=== PATIENT | male | born 1945 | race Caucasian/White ===

== ENCOUNTER 2017-07-01 11:25 | Emergency (ER) | payer OTHER ==
[~2017-07-01] VITALS: Ht 170.2 cm; Wt 106.6 kg
[~2017-07-01 11:25] MED LIST: AMBIEN10 MG PO; AMOX1TAB12 PO; CARDURA XL4 MG/BOTTL PO; CARDURA1 MG PO; CATAFLAM50 MG PO; CATAPRES0.1 MG PO; CELEBREX200MG PO; CLONAZEPAM2 MG/TAB PO; COZAAR100 MG PO; COZAAR25 MG PO; CYMBALTA60 MG PO; DERMOTIC20 ML OT; FLOXIN OTIC OT; KLONOPIN0.125 MG/T PO; LAMICTAL200 MG PO; LAMICTAL25 M1 PO; LAMICTAL25 MG PO; LASIX40 MG PO; LATUDA40 MG; LEVAQUIN750 MG PO; MEDROL4 MG PO; MEDROLPACK PO; ORPH100T PO; PROTONIX40 MG PO; SEROQUEL XR200 MG PO; SEROQUEL25 MG PO; SKELAXIN800 MG PO; TENORMIN0.5 MG/ML IV; TRENTAL; TUSSI PRES-B L120 M1 PO; WELLBUTRIN SR150 MG PO; WELLBUTRIN100 MG PO; XANAX1 MG PO; ZOCOR5 MG; ZYNCOF 20-400120 ML PO
== END 2017-07-01 16:24 | disposition home or self-care (01) ==
LOC: ER 11:25
DX: S00.83XA Contusion of other part of head, initial encounter (principal); R42 Dizziness and giddiness; W18.39XA Other fall on same level, initial encounter; Y93.89 Activity, other specified; Y92.018 Other place in single-family (private) house as the place of occurrence of the external cause; Y99.8 Other external cause status

== ENCOUNTER 2017-10-26 09:01 | Emergency (ER) | payer OTHER ==
[~2017-10-26] VITALS: Ht 170.2 cm; Wt 105.2 kg
== END 2017-10-26 12:17 | disposition home or self-care (01) ==
LOC: ER 09:01
DX: S40.012A Contusion of left shoulder, initial encounter (principal); S40.011A Contusion of right shoulder, initial encounter; S60.511A Abrasion of right hand, initial encounter; W18.09XA Striking against other object with subsequent fall, initial encounter; Y93.01 Activity, walking, marching and hiking; Y92.488 Other paved roadways as the place of occurrence of the external cause; Y99.8 Other external cause status

== ENCOUNTER 2018-02-19 09:35 | Emergency (ER) | payer OTHER ==
[~2018-02-19] VITALS: Ht 170.2 cm; Wt 97.5 kg
== END 2018-02-19 12:32 | disposition home or self-care (01) ==
LOC: ER 09:35
DX: S80.02XA Contusion of left knee, initial encounter (principal); W18.09XA Striking against other object with subsequent fall, initial encounter; Y93.89 Activity, other specified; Y92.89 Other specified places as the place of occurrence of the external cause; Y99.8 Other external cause status

== ENCOUNTER 2018-02-22 10:32 | Emergency (ER) | payer OTHER ==
[~2018-02-22] VITALS: Ht 170.2 cm; Wt 97.5 kg
== END 2018-02-22 13:09 | disposition home or self-care (01) ==
LOC: ER 10:32
DX: G89.11 Acute pain due to trauma (principal); M54.5 Low back pain

== ENCOUNTER 2018-02-27 15:46 | Emergency (ER) | payer OTHER ==
[~2018-02-27] VITALS: Ht 170.2 cm; Wt 97.5 kg
== END 2018-02-27 19:23 | disposition home or self-care (01) ==
LOC: ER 15:46
DX: R22.43 Localized swelling, mass and lump, lower limb, bilateral (principal)

== ENCOUNTER 2018-02-28 11:04 | Emergency (ER) | payer OTHER ==
[~2018-02-28] VITALS: Ht 170.2 cm; Wt 97.5 kg
== END 2018-02-28 14:01 | disposition home or self-care (01) ==
LOC: ER 11:04
DX: G89.11 Acute pain due to trauma (principal); M54.5 Low back pain; R60.0 Localized edema

== ENCOUNTER → 2018-03-10 | Outpatient (CLI) | payer OTHER ==
[~2018-03-10] MED LIST changes: +LIPO-FLAVONOID1 EACH PO
== END | disposition home or self-care (01) ==
LOC: NUCLEAR 09:30
DX: M06.4 Inflammatory polyarthropathy (principal)
CPT/HCPCS: 78315; A9503

== ENCOUNTER 2018-03-11 09:18 | Outpatient (CLI) | payer OTHER ==
[~2018-03-11] VITALS: Ht 152.4 cm; Wt 99.8 kg
[~2018-03-11 09:18] MED LIST changes: -LIPO-FLAVONOID1 EACH PO
[2018-03-11] MEDS ORDERED: LIPO-FLAVONOID1 EACH PO ×2 (11:36)
== END 2018-03-11 09:30 | disposition home or self-care (01) ==
LOC: OFIC 805 09:18
DX: J31.0 Chronic rhinitis (principal); H90.3 Sensorineural hearing loss, bilateral; H61.23 Impacted cerumen, bilateral; R42 Dizziness and giddiness

== ENCOUNTER 2018-04-06 09:07 | Outpatient (CLI) | payer OTHER ==
[~2018-04-06 09:07] MED LIST changes: +LIPO-FLAVONOID1 EACH PO
== END 2018-04-06 09:14 | disposition home or self-care (01) ==
LOC: MRI 09:07
DX: M54.12 Radiculopathy, cervical region (principal); M54.2 Cervicalgia
CPT/HCPCS: 72141

== ENCOUNTER → 2018-04-07 | Outpatient (CLI) | payer OTHER | END | disposition home or self-care (01) | LOC: MAMO-SONO 08:54 | DX: M06.4 Inflammatory polyarthropathy (principal) ==

== ENCOUNTER → 2018-05-06 | Outpatient (CLI) | payer OTHER | END | disposition home or self-care (01) | LOC: MRI 09:38 | DX: M54.5 Low back pain (principal); M54.16 Radiculopathy, lumbar region | CPT/HCPCS: 72148 ==

== ENCOUNTER 2018-06-19 10:13 | Outpatient (CLI) | payer OTHER | END 2018-06-19 10:39 | disposition home or self-care (01) | LOC: MRI 10:13 | DX: I67.2 Cerebral atherosclerosis (principal); G31.89 Other specified degenerative diseases of nervous system | CPT/HCPCS: 70551 ==

== ENCOUNTER 2018-11-18 15:09 | Emergency (ER) | payer OTHER ==
[~2018-11-18] VITALS: Ht 170.2 cm; Wt 104.3 kg
== END 2018-11-18 20:58 | disposition home or self-care (01) ==
LOC: ER 15:09 → CPU-OBS 15:43 → ER 15:43
DX: E86.0 Dehydration (principal)

== ENCOUNTER 2019-02-28 15:05 | Emergency (ER) | payer OTHER ==
[~2019-02-28] VITALS: Ht 170.2 cm; Wt 81.6 kg
== END 2019-02-28 17:16 | disposition home or self-care (01) ==
LOC: ER 15:05
DX: M54.5 Low back pain (principal)

== ENCOUNTER 2019-10-17 18:19 | Emergency (ER) | payer OTHER ==
[~2019-10-17] VITALS: Ht 170.2 cm; Wt 88.5 kg
== END 2019-10-17 22:18 | disposition home or self-care (01) ==
LOC: ER 18:19
DX: M54.5 Low back pain (principal); M51.16 Intervertebral disc disorders with radiculopathy, lumbar region

== ENCOUNTER 2019-10-27 06:52 | Emergency (ER) | payer OTHER ==
[~2019-10-27] VITALS: Ht 170.2 cm; Wt 88.5 kg
== END 2019-10-28 12:32 | disposition home or self-care (01) ==
LOC: ER 06:52
DX: S00.83XA Contusion of other part of head, initial encounter (principal); S30.0XXA Contusion of lower back and pelvis, initial encounter; W18.39XA Other fall on same level, initial encounter; Y93.89 Activity, other specified; Y92.091 Bathroom in other non-institutional residence as the place of occurrence of the external cause; Y99.8 Other external cause status; R42 Dizziness and giddiness

== ENCOUNTER 2019-12-04 19:48 | Emergency (ER) | payer OTHER ==
[~2019-12-04] VITALS: Ht 170.2 cm; Wt 86.2 kg
== END 2019-12-05 01:15 | disposition home or self-care (01) ==
LOC: ER 19:48
DX: R55 Syncope and collapse (principal); R07.89 Other chest pain

== ENCOUNTER 2020-08-01 04:39 | Emergency (ER) | payer OTHER ==
[~2020-08-01] VITALS: Ht 170.2 cm; Wt 79.4 kg
== END 2020-08-01 12:42 | disposition home or self-care (01) ==
LOC: ER 04:39
DX: S00.03XA Contusion of scalp, initial encounter (principal); S40.011A Contusion of right shoulder, initial encounter; S70.01XA Contusion of right hip, initial encounter; S20.222A Contusion of left back wall of thorax, initial encounter; R55 Syncope and collapse; F43.11 Post-traumatic stress disorder, acute; W18.09XA Striking against other object with subsequent fall, initial encounter; Y93.E8 Activity, other personal hygiene; Y92.031 Bathroom in apartment as the place of occurrence of the external cause; Y99.8 Other external cause status

== ENCOUNTER 2020-10-17 11:14 | Outpatient (CLI) | payer OTHER | END 2020-10-17 11:26 | disposition home or self-care (01) | LOC: NUCLEAR 11:14 | PROVIDERS: ATTEND Internal Medicine Cardiovascular Disease | DX: I87.2 Venous insufficiency (chronic) (peripheral) (principal) ==

== ENCOUNTER 2020-10-18 09:03 | Outpatient (CLI) | payer OTHER | END 2020-10-18 09:23 | disposition home or self-care (01) | LOC: NUCLEAR 09:03 | PROVIDERS: ATTEND Internal Medicine Cardiovascular Disease | DX: I73.9 Peripheral vascular disease, unspecified (principal) ==

== ENCOUNTER 2020-10-24 07:28 | Outpatient (CLI) | payer OTHER | END 2020-10-24 07:40 | disposition home or self-care (01) | LOC: SONOGRAMA 07:28 | PROVIDERS: ATTEND Specialist/Technologist, Other Nephrology | DX: R10.9 Unspecified abdominal pain (principal); N18.30 Chronic kidney disease, stage 3 unspecified; R31.9 Hematuria, unspecified ==

== ENCOUNTER 2020-11-03 03:16 | Emergency (ER) | payer OTHER ==
[~2020-11-03] VITALS: Ht 152.4 cm; Wt 93.0 kg
[2020-11-03] MEDS ORDERED: ORPHENADRINE C100 MG PO (06:48)
[2020-11-03] MEDS ORDERED: MOBIC15 MG PO (06:48)
== END 2020-11-03 06:54 | disposition home or self-care (01) ==
LOC: ER 03:16
DX: S20.212A Contusion of left front wall of thorax, initial encounter (principal); S70.02XA Contusion of left hip, initial encounter; S40.012A Contusion of left shoulder, initial encounter; W18.09XA Striking against other object with subsequent fall, initial encounter; Y93.89 Activity, other specified; Y92.018 Other place in single-family (private) house as the place of occurrence of the external cause; Y99.8 Other external cause status

== ENCOUNTER 2021-01-25 14:35 | Outpatient (CLI) | payer OTHER ==
[~2021-01-25 14:35] MED LIST changes: +MOBIC15 MG PO; +ORPHENADRINE C100 MG PO
== END 2021-01-25 14:45 | disposition home or self-care (01) ==
LOC: PPH VACUNA 14:35
PROVIDERS: ATTEND Emergency Medicine Pediatric Emergency Medicine
DX: Z23 Encounter for immunization (principal)

== ENCOUNTER 2021-03-25 16:33 | Inpatient (IN) | payer OTHER ==
[~2021-03-25] VITALS: Ht 170.2 cm; Wt 74.8 kg
--- NOTE | 2021-03-25 16:39 | NUR ---
PACIENTE REFIERE SANGRADO RECTAL DESDE KAYLEE. PACIENTE ES UBICADO EN AREA DE OBSERVACION EN ESPERA DE EVALUACION MEDICA.
[2021-03-25] MEDS ORDERED: COZAAR100 MG PO (16:41)
--- NOTE | 2021-03-25 16:52 | NUR ---
SE LE ORIENTA A LA PACIENTE SOBRE LAS ORDENES MEDICAS, REFIERE ENTEDER LAS MISMAS SE [place], SE LE ROSA LAS MUETRAS DE [place], SE LE REALIZA CT ABDOMINAL RACHEL LAS ORDENE SMEDICAS.
[2021-03-29] MEDS ORDERED: CLORAZEPATE DI7.5 MG (15:04)
[2021-03-29] MEDS ORDERED: DOXAZOSIN MESYLA4 MG (15:04)
[2021-03-29] MEDS ORDERED: DULOXETINE HCL60 MG (15:04)
[2021-03-29] MEDS ORDERED: MEMANTINE HCL10 MG (15:04)
[2021-03-29] MEDS ORDERED: DIAZEPAM10 MG (15:05)
[2021-03-29] MEDS ORDERED: PANTOPRAZOLE SO40 MG (15:05)
[2021-03-29] MEDS ORDERED: SIMVASTATIN40 MG (15:05)
[2021-03-29] MEDS ORDERED: ALPRAZOLAM2 MG (15:05)
[2021-03-29] MEDS ORDERED: NABUMETONE750 MG (15:05)
[2021-03-29] MEDS ORDERED: FLUOXETINE HCL40 MG (15:05)
[2021-03-29] MEDS ORDERED: RESTORIL30 MG (15:06)
[2021-03-29] MEDS ORDERED: LOSARTAN-HCTZ1 EACH (15:06)
[2021-03-29] MEDS ORDERED: LATUDA80 MG (15:06)
[2021-03-29] MEDS ORDERED: PREGABALIN150 MG (15:06)
[2021-03-29] MEDS ORDERED: GABAPENTIN800 M1 (15:06)
[2021-03-29] MEDS ORDERED: OXYBUTYNIN CHLO10 MG (15:07)
[2021-03-29] MEDS ORDERED: FUROSEMIDE20 MG (15:12)
[2021-03-29] MEDS ORDERED: CENTRUM SILVER1 EAC2 (15:13)
== END 2021-04-09 15:34 | disposition home or self-care (01) | DRG 377 ==
LOC: ER 16:33 → MEDI 23:54 → MEDJ 23:54 → MEDI 03-26 01:08 → MEDJ 03-26 07:41
PROVIDERS: ADMIT Internal Medicine; ATTEND Internal Medicine
PROC: 3E0F7SF Introduction of Other Gas into Respiratory Tract, Via Natural or Artificial Opening (ICD-10-PCS; 2021-03-25)
PROC: 8E0ZXY6 Isolation (ICD-10-PCS; 2021-03-26)
PROC: BW2110Z Computerized Tomography (CT Scan) of Abdomen and Pelvis using Low Osmolar Contrast, Unenhanced and Enhanced (ICD-10-PCS; 2021-03-26)
PROC: 4A12X4Z Monitoring of Cardiac Electrical Activity, External Approach (ICD-10-PCS; 2021-03-26)
PROC: 30233N1 Transfusion of Nonautologous Red Blood Cells into Peripheral Vein, Percutaneous Approach (ICD-10-PCS; principal; 2021-03-27)
DX: K62.5 Hemorrhage of anus and rectum (principal); U07.1 COVID-19; N39.0 Urinary tract infection, site not specified; K57.33 Diverticulitis of large intestine without perforation or abscess with bleeding; D64.9 Anemia, unspecified; E86.0 Dehydration; I10 Essential (primary) hypertension; Z20.822 Contact with and (suspected) exposure to COVID-19